=== PATIENT | female | born 1925 | race Caucasian/White ===

== ENCOUNTER 2016-07-27 13:09 | Emergency (ER) | payer OTHER ==
[~2016-07-27 13:09] MED LIST: NAPROXEN375 M2 PO
--- NOTE | 2016-07-27 14:44 | ED NEURO DEFICIT/STROKE ---
History of Present Illness General Chief Complaint: Altered Mental Status Stated Complaint: AMS PER FAMILY Source: patient, family (daughter) Exam Limitations: dementia Vital Signs & Intake/Output Vital Signs & Intake/Output Vital Signs Date Time Temp Pulse Resp B/P Pulse O2 O2 Flow FiO2 Ox Delivery Rate 07/27 1551 97.9 82 18 104/68 98 Room Air 07/27 1333 98.0 86 20 105/71 94 Room Air Allergies Coded Allergies: Penicillins (Intermediate, RASH 04/22/16) Reconcile Medications Naproxen 375 MG TABLET 1 TAB PO BID PRN PAIN with food Nitrofurantoin Monohyd/M-Cryst (Macrobid 100 MG Capsule) 100 MG CAPSULE 1 CAP PO BID uti Triage Note: PT TO ED WITH DAUGHTER FOR INCREASING CONFUSION. DAUGHTER STATES THIS AM PT WAS HAVING A HARD TIME WITH HER SPEECH AND DIDN'T KNOW SHE WAS IN HER OWN HOME. PT HAS NO COMPLAINTS. Triage Nurses Notes Reviewed? yes Onset: Abrupt Duration: day(s): (1), constant, resolved prior to arrival Timing: single episode today Severity: moderate Vision Problem? No Glaucoma? No Baseline: alert but confused (dementia) Associated Symptoms: denies HPI: 89-year-old female with history of coronary artery disease high cholesterol presents emergency room for evaluation with her daughter who brought her in after she states that the patient was acting confused with slurred speech. The patient's daughter states his symptoms have since resolved. The patient's daughter states she has a history of dementia and from time to time intermittently comes confused and does not know where she is which is what occurred today. There is been no recent fall or trauma. There is visiting caretakers and the patient daughter calls her every day. On arrival patient denies any symptoms there is no headache or vision changes chest pain shortness of breath abdominal pain nausea vomiting dizziness lightheadedness. The patient 's daughter states the episode was brief and she is at her baseline currently (OTTO VILLEGAS) Past History Travel History Traveled to [place] past 21 day No Medical History Any Pertinent Medical History? see below for history Neurological: dementia EENT: NONE Cardiovascular: hypertension, hyperlipidemia, myocardial infarction Respiratory: NONE Gastrointestinal: NONE Hepatic: NONE Renal: NONE Musculoskeletal: NONE Psychiatric: depression Endocrine: NONE Cancer(s): breast cancer Surgical History Surgical History: non-contributory Psychosocial History What is your primary language Liberian Tobacco Use: Never used ETOH Use: denies use Illicit Drug Use: denies illicit drug use Family History Hx Contributory? No (OTTO VILLEGAS) Review of Systems Review of Systems Constitutional: Reports: see HPI. All Other Systems: Reviewed and Negative Comments Review of systems: See HPI, All other systems negative. Constitutional, no chills no fever, no malaise HEENT: No visual changes no sore throat no congestion, no ear pain Cardiovascular: No chest pain , no palpitation , no orthopnea no ankle swelling Skin, no jaundice no rashes, no change in skin Respiratory: No dyspnea no cough no sputum no hemoptysis GI: No nausea no vomiting, no diarrhea, no bloating/constipation : No dysuria No hematuria, no frequency Muscle skeletal: No joint pain, no joint swelling, no back pain, no neck pain, Neurologic: No numbness no headache Psych: No stress Heme/endocrine: No bruising no bleeding Immunology: No lymphadenopathy, (OTTO VILLEGAS) Physical Exam Physical Exam General Appearance: well developed/nourished, no apparent distress, alert, awake , comfortable Psychiatric: awake, alert, oriented x 3 Cranial Nerves: normal hearing, normal speech, PERRL Coordination/Gait: normal finger to nose, normal gait, negative Romberg Motor/Sensory: no motor/sensory deficits Comments: Well-developed well-nourished person in no acute distress HEENT: Normal EENT exam; PERRL, EOMI, no nystagmus. HEAD is atraumatic. moist mucous membranes. Neck: Supple, no bruit normal range of motion without pain or tenderness Back: Nontender, no CVA tenderness. Full range of motion Cardiovascular: Regular rate and rhythms no murmurs rubs Respiratory: Chest nontender.There were no bony deformities, no asymmetry. No respiratory distress. Patient speaking in full complete sentences. Breath sounds clear to auscultation bilaterally: NO W/R/R Abdomen: Soft, nontender nondistended, no appreciable organomegaly. Normal bowel sounds. No rebound/guarding, Extremity: No edema, full range of motion of extremities, normal and equal pulses bilaterally, 5 out of 5 strength noted to bilateral upper and lower extremities Neuro: Alert oriented x2- person and time baseline per daughter, motor sensory normal, cranial nerves II through XII grossly intact. There were no obvious focal neurologic abnormalities. Skin: No appreciable rash on exposed skin, skin is warm and dry. Psych: Mood and affect is normal, memory and judgment is normal. Core Measures CVA/TIA Diagnosis: No Severe Sepsis Present: No Septic Shock Present: No (RON MCCABE,OTTO) Progress Differential Diagnosis: electrolyte imbalance, hypoglycemia, intracranial Hem., intracranial mass/tumor, stroke, vertebrobasilar insuff., uti, sepsis, dementia Plan of Care: Orders Procedure Date/time Status Add-on Test (ER Only) 07/27 1545 Active CULTURE,URINE 07/27 1508 Active URINALYSIS 07/27 1459 Complete COMPREHENSIVE METABOLIC PANEL 07/27 1459 Complete CBC WITHOUT DIFFERENTIAL 07/27 1459 Complete Laboratory Tests 07/27/16 1508: Anion Gap 9, Estimated GFR > 60, BUN/Creatinine Ratio 24.3, Glucose 80, Calcium 9.5, Total Bilirubin 0.5, AST 17, ALT 30, Alkaline Phosphatase 61, Total Protein 5.8 L, Albumin 3.4 L, Globulin 2.4, Albumin/Globulin Ratio 1.4, CBC w Diff NO MAN DIFF REQ, RBC 4.98, MCV 88.4, MCH 29.2, RDW 15.5 H, MPV 7.4, Gran % 66.7, Lymphocytes % 23.3, Monocytes % 8.4, Eosinophils % 1.1, Basophils % 0.5, Absolute Granulocytes 5.4, Absolute Lymphocytes 1.9, Absolute Monocytes 0.7 H, Absolute Eosinophils 0.1, Absolute Basophils 0, PUBS MCHC 33.0, Urine Color YEL, Urine Clarity CLDY H, Urine pH 6.0, Ur Specific [place] >= 1.030, Urine Protein NEG, Urine Ketones TRACE H, Urine Nitrite POS H, Urine Bilirubin NEG, Urine Urobilinogen 1.0, Ur Leukocyte Esterase SMALL H, Ur Microscopic SEDIMENT EXAMINED, Urine RBC RARE, Urine WBC > 75 H, Urine Hemoglobin SMALL H, Urine Glucose NEG Microbiology 07/27 1508 URINE ROUT: Urine Culture - RECD Labs ordered old records reviewed CAT scan ordered patient is ambulatory to room 16 around the emergency room with steady gait. There is no slurred speech no dysarthriafacial droop at this time. Her daughter states that she is at her baseline mental status currently Case discussed with Dr. Hodgson Discussed with the patient and her daughter all her lab results and CT findings. I discussed with them that it may be too soon to see possible CVA versus TIA on CAT scan however given the patient's physical exam findings and lack thereof my suspicion is low currently. Discussed with her daughter the possibility of ongoing dementia, as well as the urinary tract infection which may explain her episode. Her daughter feels comfortable with taking her home advise close follow-up with her primary care physician on Friday, however if the symptoms redevelop to return immediately which they're in agreement with answered all of her questions prescription for Macrobid provided urine culture sent cleared for discharge (RON MCCABE,OTTO) Diagnostic Imaging: Viewed by Me: CT Scan. Discussed w/RAD: CT Scan. Radiology Impression: PATIENT: JIGAR MOURA PRESENT AGE: 89 PATIENT ACCOUNT NO: [id number] : [birth year] LOCATION: [facility] ORDERING PHYSICIAN: OTTO MCCABE SERVICE DATE: 07/27/16 EXAM TYPE: CAT - CT HEAD WO IV CONTRAST EXAMINATION: CT HEAD WITHOUT CONTRAST CLINICAL INFORMATION: Confusion; question intracranial hemorrhage. COMPARISON: CT brain dated 05/07/2016. TECHNIQUE: Contiguous axial imaging was performed from the skull base to vertex without intravenous administration of contrast. DLP: 529.16 mGy-cm FINDINGS: There is no evidence of acute intracranial hemorrhage or territorial infarction. No abnormal mass effect or midline shift is seen. [place]aley to white matter differentiation is well preserved. No extra-axial fluid collections are identified. There is age-appropriate moderate central and cortical atrophy. There is mild patchy low attenuation change in the periventricular white matter spaces, commonly associated with chronic microangiopathy. The osseous structures and soft tissues are normal. The visualized paranasal sinuses appear clear. There is again opacification of a few of the right mastoid air cells. The left mastoid air cells appear clear. IMPRESSION: 1. No acute intracranial pathology. 2. There is moderate central and cortical atrophy, commensurate with advanced age. 3. There is mild patchy low attenuation change in the periventricular white matter spaces, commonly associated chronic microangiopathy. 3. 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 DICTATED BY: MARTINA KRUEGER MD DATE/TIME DICTATED:07/27/161434 METALLURGICAL SPECIALIST:DANIEL DATE/TIME TRANSCRIBED:07/27/161434 CONFIDENTIAL, DO NOT COPY WITHOUT APPROPRIATE AUTHORIZATION. <Electronically signed in Other Vendor System> SIGNED BY: MARTINA KRUEGER MD 07/27/16 1443 Initial ED EKG: none (OTTO VILLEGAS) Departure Departure Time of Disposition: 1546 Disposition: HOME OR SELF CARE Condition: Stable Clinical Impression Primary Impression: UTI (urinary tract infection) Referrals: MICHAEL VAUGHN,BRYCE Alcantar (PCP/Family) Additional Instructions: Macrobid as directed follow-up with her primary care physician on Friday return immediately if the symptoms redevelop or have any other concerns this prescription was sent to her pharmacy Departure Forms: Customer Survey General Discharge Information Prescriptions: Current Visit Scripts Nitrofurantoin Monohyd/M-Cryst (Macrobid 100 MG Capsule) 1 CAP PO BID #10 CAP (OTTO VILLEGAS) PA/TELLERS SUPERVISOR Co-Sign Statement Statement: ED Attending supervision documentation- [X] I saw and evaluated the patient. I have also reviewed all the pertinent lab results and diagnostic results. I agree with the findings and the plan of care as documented in the PA's/TELLERS SUPERVISOR's documentation. [X] I have reviewed the ED Record and agree with the PA's/TELLERS SUPERVISOR's documentation. [] Additions or exceptions (if any) to the PAs/TELLERS SUPERVISOR's note and plan are summarized below: [] (TOMMY VAUGHN,ALEX)
[2016-07-27 15:25] LABS: ABSOLUTE BASOPHIL COUNT 0 /CUMM (0.0-0.2); ABSOLUTE EOSINOPHIL COUNT 0.1 /CUMM (0.0-0.7); ABSOLUTE GRANULOCYTE CT 5.4 /CUMM (1.4-6.5); ABSOLUTE LYMPH COUNT 1.9 /CUMM (1.2-3.4); ABSOLUTE MONOCYTE COUNT 0.7 /CUMM (0.10-0.60); BASOPHIL % 0.5 % (0.0-2.0); EOSINOPHIL % 1.1 % (0-5); GRANULOCYTE % 66.7 % (42.2-75.2); MEAN CORPUSCULAR HGB 29.2 PG (27.0-31.0); MEAN CORPUSCULAR VOLUME 88.4 FL (81.0-99.0); MEAN PLATELET VOLUME 7.4 FL (7.4-10.4); PLATELET COUNT 308 /CUMM (130-400); RBC DISTRIBUTION WIDTH 15.5 % (11.5-14.5); RED BLOOD CELL CT 4.98 /CUMM (4.20-5.40); WHITE BLOOD CELL COUNT 8.1 /CUMM (4.8-10.8)
[2016-07-27] MEDS ORDERED: MACROBID 100 M100 MG PO (15:48)
[2016-07-27 15:51] VITALS: BP 104/68
== END 2016-07-27 15:52 ==
LOC: ERH 13:09
PROVIDERS: Physician Assistant Medical
DX: N39.0 Urinary tract infection, site not specified (principal)
CPT/HCPCS: 81001; 87086

== ENCOUNTER 2016-10-02 17:38 | Emergency (ER) | payer OTHER ==
[~2016-10-02] VITALS: Ht 149.9 cm; Wt 30.8 kg
[~2016-10-02 17:38] MED LIST changes: +MACROBID 100 M100 MG PO
--- NOTE | 2016-10-02 18:53 | ED AMS/SEIZURE/WEAK/DIZZY ---
See Addendum History of Present Illness General Chief Complaint: General Adult Stated Complaint: WEAKNESS Source: patient, family, old records Exam Limitations: dementia Vital Signs & Intake/Output Vital Signs & Intake/Output Vital Signs Date Time Temp Pulse Resp B/P Pulse O2 O2 Flow FiO2 Ox Delivery Rate 10/03 0649 96.4 80 18 114/70 95 Room Air 10/03 0314 96.5 81 18 116/69 94 Room Air 10/02 2037 96.0 78 18 120/68 94 Room Air 10/02 1930 Room Air 10/02 1810 98.2 96 18 109/72 91 Room Air ED Intake and Output 10/03 0000 10/02 1200 Intake Total Output Total Balance Patient 67 lb 15.99 oz Weight Allergies Coded Allergies: Penicillins (Intermediate, RASH 04/22/16) Triage Note: RECEIVED 89 YO FEMALE WITH HX OF DEMENTIA, WITH DAUGHTER WHO REPORTS WORSENING CONFUSION, UNABLE TO CARE FOR SELF, NOT EATING, DRINKING. PT CARETAKERS (CONTINUOUM OF CARE AGENCY) DOES NOT FEEL COMFORTABLE LEAVING HER ALONE. PT REPORTS WEAKNESS. Triage Nurses Notes Reviewed? yes Onset: Gradual Duration: week(s): (x 4 weeks), constant Timing: recent history Injury Environment: home Severity: moderate, severe Severity Numbers: 9 No Modifying Factors: none Associated Symptoms: denies HPI: 89-year-old female history of coronary artery disease high cholesterol dementia presents with her daughter for evaluation who states that the patient has had worsening confusion unsteady gait that has been going on getting persistently worse over the past 1 month. The patient has continuing care agency nursing comes out Friday through Friday during the day however her daughter states she has received 2 protocols this week from the agency stating that they do not feel safe with the patient being at home by herself. She normally amylase without the 8 of a walker or cane however her daughter states that she has been unsteady on her feet. The patient is otherwise without any complaints. She is demented at baseline she offers no complaints at this time. no recent fall or trauma (RON MCCABE,OTTO) Reconcile Medications Metoprolol Succinate 25 MG TAB 25 MG PO DAILY HEART (Reported) Mirtazapine 15 MG TABLET 15 MG PO AT BEDTIME SLEEP (Reported) Naproxen 375 MG TABLET 1 TAB PO BID PRN PAIN with food Nitrofurantoin Monohyd/M-Cryst (Macrobid 100 MG Capsule) 100 MG CAPSULE 1 CAP PO BID uti (BRIGID VAUGHN,MIESHA Hearn) Past History Travel History Traveled to [place] past 21 day No Medical History Any Pertinent Medical History? see below for history Neurological: dementia EENT: NONE Cardiovascular: hypertension, hyperlipidemia, myocardial infarction Respiratory: NONE Gastrointestinal: NONE Hepatic: NONE Renal: NONE Musculoskeletal: NONE Psychiatric: depression Endocrine: NONE Blood Disorders: NONE Cancer(s): breast cancer Surgical History Surgical History: non-contributory Psychosocial History What is your primary language Citizen Of [place] Tobacco Use: Never used Family History Hx Contributory? No (OTTO VILLEGAS) Review of Systems Review of Systems Constitutional: Reports: see HPI. All Other Systems: Reviewed and Negative Comments Review of systems: See HPI, All other systems negative. Constitutional, no chills no fever, no malaise HEENT: No visual changes no sore throat no congestion Cardiovascular: No chest pain , no palpitation Skin, no rashes, no change in skin Respiratory: No dyspnea no cough no sputum GI: No nausea no vomiting, no diarrhea : No dysuria Muscle skeletal: No joint pain, no back pain, no neck pain, Neurologic: No numbness no headache Psych: No stress Heme/endocrine: No bruising no bleeding Immunology: No lymphadenopathy (OTTO VILLEGAS) Physical Exam Physical Exam General Appearance: awake, cachetic Comments: HEENT: Normal EENT exam; PERRL, EOMI, no nystagmus. HEAD is atraumatic. moist mucous membranes. Neck: Supple, , normal range of motion Back: Nontender. Full range of motion Cardiovascular: Regular rate and rhythms no murmurs rubs Respiratory: Chest nontender.There were no bony deformities, no asymmetry. No respiratory distress. Patient speaking in full complete sentences. Breath sounds clear to auscultation bilaterally: NO W/R/R Abdomen: Soft, nontender nondistended, Extremity: No edema, full range of motion of extremities, normal and equal pulses bilaterally, 5 out of 5 strength noted to bilateral upper and lower extremities Neuro: Alert oriented 0 baseline per daughter, motor sensory normal, cranial nerves II through XII grossly intact. There were no obvious focal neurologic abnormalities. Skin: No appreciable rash on exposed skin, skin is warm and dry. Psych: Mood and affect is normal, memory and judgment is normal. Core Measures ACS in differential dx? Yes CVA/TIA Diagnosis: No Severe Sepsis Present: No Septic Shock Present: No (RON MCCABE,OTTO) Progress Differential Diagnosis: arrythmia, anemia, benign positional vertigo, CVA/stroke , dehydration, electrolyte imbalance, GI bleed, hypoxia, migraine ROBERTS, seizure disorder, subarachnoid Hem., UTI/pyelo, vertebrobasilar insuff Plan of Care: Orders Procedure Date/time Status Regular Diet 10/03 B Active PT Evaluate & Treat 10/03 07 Active Add-on Test (ER Only) 10/02 2116 Active TROPONIN LEVEL 10/02 1940 Complete CASE MANAGEMENT CONSULT 10/02 1913 Active EKG 10/02 1901 Active URINALYSIS 10/02 1846 Complete COMPREHENSIVE METABOLIC PANEL 10/02 1846 Complete CBC WITHOUT DIFFERENTIAL 10/02 1846 Complete Laboratory Tests 10/02/162128: Urine Color YEL, Urine Clarity CLEAR, Urine pH 5.5, Ur Specific [place] >= 1.030 , Urine Protein 30 H, Urine Ketones 40 H, Urine Nitrite NEG, Urine Bilirubin NEG@ICTO, Urine Urobilinogen 2.0 H, Ur Leukocyte Esterase TRACE H, Ur Microscopic SEDIMENT EXAMINED, Urine RBC 3-5, Urine WBC 15-25 H, Ur Epithelial Cells RARE, Urine Bacteria FEW H, Hyaline Casts 10-15 H, Urine Mucus MOD H, Urine Hemoglobin SMALL H, Urine Glucose NEG 10/02/161940: Anion Gap 15, Estimated GFR > 60, BUN/Creatinine Ratio 52.9 H, Glucose 71, Calcium 9.9, Total Bilirubin 1.0, AST 25, ALT 29, Alkaline Phosphatase 46, Troponin I 0.07, Total Protein 6.3, Albumin 3.7, Globulin 2.6, Albumin/Globulin Ratio 1.4, CBC w Diff NO MAN DIFF REQ, RBC 5.51 H, MCV 87.3, MCH 28.9, RDW 15.8 H, MPV 7.5, Gran % 63.4, Lymphocytes % 26.7, Monocytes % 7.1, Eosinophils % 1.2 , Basophils % 1.6, Absolute Granulocytes 4.6, Absolute Lymphocytes 1.9, Absolute Monocytes 0.5, Absolute Eosinophils 0.1, Absolute Basophils 0.1, PUBS MCHC 33.1 10/02/161901: Troponin I Cancelled Labs ordered old records reviewed case discussed with case management patient will require physical therapy consult prior disposition status 10/02/2016 8:17:48 PM case discussed with and signed out to Dr. Beach pending PT consult in the a.m. and lab work. (OTTO VILLEGAS) Initial ED EKG: normal sinus at 70, nonspecific ST segment changes normal axis normal axis Prior EKG: unchanged (07/2009) Hand-Off Endorsed To: RAVI BEACH MD Endorsed Time: 2016 Pending: consult (PT CONSULT), labs (OTTO VILLEGAS) Hand-Off Endorsed To: MIESHA HERNANDEZ MD Endorsed Time: 99 Pending: consult (RAVI BEACH MD) Hand-Off Endorsed To: TRAMAINE DURAND DO Endorsed Time: 699 Pending: consult (case management for placement) (MIESHA HERNANDEZ MD) Departure Departure Disposition: STILL A PATIENT Condition: Stable Clinical Impression Primary Impression: Dementia Referrals: MICHAEL VAUGHN,BRYCE Alcantar (PCP/Family) Departure Forms: Customer Survey General Discharge Information (OTTO VILLEGAS) PA/WATER VALVE MECHANIC Co-Sign Statement Statement: ED Attending supervision documentation- [X] I saw and evaluated the patient. I have also reviewed all the pertinent lab results and diagnostic results. I agree with the findings and the plan of care as documented in the PA's/WATER VALVE MECHANIC's documentation. [X] I have reviewed the ED Record and agree with the PA's/WATER VALVE MECHANIC's documentation. [] Additions or exceptions (if any) to the PAs/WATER VALVE MECHANIC's note and plan are summarized below: [] (RAVI BEACH MD) Departure Comments 10/03/16 9 AM The patient was signed out to me by Dr. Hernandez. She is pending disposition by case management. The family would like to "self pay" for her to be placed in a fci, and they're looking for assistance with this. (TRAMAINE DURAND DO)
[2016-10-02 19:56] LABS: ABSOLUTE BASOPHIL COUNT 0.1 /CUMM (0.0-0.2); ABSOLUTE EOSINOPHIL COUNT 0.1 /CUMM (0.0-0.7); ABSOLUTE GRANULOCYTE CT 4.6 /CUMM (1.4-6.5); ABSOLUTE LYMPH COUNT 1.9 /CUMM (1.2-3.4); ABSOLUTE MONOCYTE COUNT 0.5 /CUMM (0.10-0.60); BASOPHIL % 1.6 % (0.0-2.0); EOSINOPHIL % 1.2 % (0-5); GRANULOCYTE % 63.4 % (42.2-75.2); HEMATOCRIT 48.1 % (37-47); MEAN CORPUSCULAR HGB 28.9 PG (27.0-31.0); MEAN CORPUSCULAR HGB CONC 33.1 G/DL (33.0-37.0); MEAN CORPUSCULAR VOLUME 87.3 FL (81.0-99.0); MEAN PLATELET VOLUME 7.5 FL (7.4-10.4); PLATELET COUNT 258 /CUMM (130-400); RBC DISTRIBUTION WIDTH 15.8 % (11.5-14.5); RED BLOOD CELL CT 5.51 /CUMM (4.20-5.40); WHITE BLOOD CELL COUNT 7.3 /CUMM (4.8-10.8)
[2016-10-02] MEDS ORDERED: MIRTAZAPINE15 M2 PO (21:04)
[2016-10-02] MEDS ORDERED: METOPROLOL SUCC25 M1 PO (21:04)
[2016-10-03 18:10] VITALS: BP 92/70
== END 2016-10-03 18:44 ==
LOC: ERH 17:38
PROVIDERS: Physician Assistant Medical
DX: F03.90 Unspecified dementia, unspecified severity, without behavioral disturbance, psychotic disturbance, mood disturbance, and anxiety (principal); I10 Essential (primary) hypertension; E78.5 Hyperlipidemia, unspecified; F32.9 Major depressive disorder, single episode, unspecified
CPT/HCPCS: 81001; 93005; 93010; 97116-GP; 97161-GP